=== PATIENT | female | born 1950 | race Two or more races ===

== ENCOUNTER 2020-10-26 09:41 | Outpatient (CLI) | payer OTHER, BC | END 2020-10-26 10:40 | disposition home or self-care (01) | LOC: OFIC 805 09:41 | PROVIDERS: ATTEND Otolaryngology Otology & Neurotology | DX: H91.8X1 Other specified hearing loss, right ear (principal); J31.0 Chronic rhinitis; R09.81 Nasal congestion ==

== ENCOUNTER 2020-12-26 15:27 | Outpatient (CLI) | payer OTHER, BC | END 2020-12-26 17:32 | disposition home or self-care (01) | LOC: OFIC 805 15:27 | PROVIDERS: ATTEND Otolaryngology Otology & Neurotology | DX: J31.0 Chronic rhinitis (principal); R09.81 Nasal congestion; H69.81 Other specified disorders of Eustachian tube, right ear; H92.11 Otorrhea, right ear ==